=== PATIENT | female | born 1970 | race American Indian/Alaskan Native ===

== ENCOUNTER 2016-11-02 08:36 | Outpatient (CLI) | payer MEDICARE, MEDICAID ==
[2016-11-02 10:17] LABS: Blood Urea Nitrogen 9 mg/dL (7-17)
--- NOTE | 2016-11-02 14:09 | Cat Scan Report ---
CT ABDOMEN AND PELVIS WITH CONTRAST INDICATION: Constipation, diarrhea, nausea, vomiting. COMPARISON: 12/19/2006 CT. FINDINGS: Abdomen and pelvis CT performed following oral contrast and intravenous administration of 100 cc of Omnipaque 300. LUNG BASES: Approximately 1.2 cm peripheral right lower lobe pneumatocele. ABDOMEN: Stable 1 cm right hepatic dome hemangioma, axial image 11, series 2. Otherwise homogenous liver and spleen. No biliary dilatation. Patent veins. Gallbladder, pancreas, adrenals, aorta, IVC, kidneys and bowel appear within normal limits. Cecum again low-lying in the right hemipelvis. No ascites or significant adenopathy. PELVIS: Uterus again surgically absent. Urinary bladder and the rectosigmoid within normal limits. No free fluid or significant adenopathy. Age appropriate bones with slight degenerative changes. CONCLUSION: No acute CT abnormality or significant interval change with few incidental findings, as above. Thank you for the opportunity to participate in this patient's care.
== END 2016-11-02 08:37 | disposition home or self-care (01) ==
LOC: CT 08:36
PROVIDERS: ATTEND Internal Medicine Gastroenterology
DX: K66.0 Peritoneal adhesions (postprocedural) (postinfection) (principal); K59.00 Constipation, unspecified; R19.7 Diarrhea, unspecified; R11.2 Nausea with vomiting, unspecified; R19.2 Visible peristalsis; F17.200 Nicotine dependence, unspecified, uncomplicated
CPT/HCPCS: 36415; 74177; 82565; 84520; Q9967